=== PATIENT | male | born 1985 | race Asian ===

== ENCOUNTER → 2024-07-31 06:59 | Outpatient (REF) | payer OTHER, SELFPAY | LOC: RAD 06:59 | PROVIDERS: ATTENDING PHYSICIAN Internal Medicine Gastroenterology; FAMILY PHYSICIAN Family Medicine | DX: R10.13 Epigastric pain (principal); R68.81 Early satiety; R63.4 Abnormal weight loss | CPT/HCPCS: 74177; Q9967 ==

== ENCOUNTER → 2024-09-30 09:03 | Outpatient (REF) | payer SELFPAY | LOC: HWRAD 09:03 | PROVIDERS: ATTENDING PHYSICIAN Internal Medicine Cardiovascular Disease; FAMILY PHYSICIAN Family Medicine | DX: E78.9 Disorder of lipoprotein metabolism, unspecified (principal); R07.2 Precordial pain | CPT/HCPCS: 75571 ==